=== PATIENT | female | born 1980 | race Caucasian/White ===

== ENCOUNTER 2019-08-25 09:01 | Outpatient (CLI) | payer SELFPAY ==
--- NOTE | 2019-08-25 09:14 | XR_ITS ---
WS: [id number] XR sacrum coccyx min 2V [id number] REASON FOR EXAM: INJURY OF COCCYX FINDINGS: The sacrum is found to be intact with normal alignment. Sacroiliac joints were normal. The coccyx is anterior angulated in the lower 2 segments but no fractures are seen. XR/XR sacrum coccyx min 2V [id number] IMPRESSION: Mild anterior angulation of the distal coccyx No fractures of the sacrum or coccyx.
--- NOTE | 2019-08-25 09:14 | XR_ITS ---
WS: [id number] XR lumbar spine 2-3V* [id number] REASON FOR EXAM: INJURY OF LOW BACK FINDINGS: The L1 vertebra shows mild compression changes. A mild scoliotic curve convex to the right. The disc spaces and vertebral bodies are normal. XR/XR lumbar spine 2-3V* [id number] IMPRESSION: Mild compression fracture L1. Scoliotic curve convex to the right
== END 2019-08-25 09:02 | disposition home or self-care (01) ==
LOC: RAD 09:07
PROVIDERS: Family Provider Nurse Practitioner Family; PCP Nurse Practitioner Family; Visit Provider Family Medicine
DX: S39.92XA Unspecified injury of lower back, initial encounter (principal); X58.XXXA Exposure to other specified factors, initial encounter; M48.56XA Collapsed vertebra, not elsewhere classified, lumbar region, initial encounter for fracture
CPT/HCPCS: 72100; 72220

== ENCOUNTER → 2023-04-22 09:32 | Outpatient (BNVA) | payer OTHER, SELFPAY | PROVIDERS: Family Provider Nurse Practitioner Family; PCP Nurse Practitioner Family; Visit Provider Nurse Practitioner Family | DX: J02.9 Acute pharyngitis, unspecified (principal) | CPT/HCPCS: 87880 ==

== ENCOUNTER → 2024-01-08 17:56 | Outpatient (BNVA) | payer MEDICAID, SELFPAY | PROVIDERS: Family Provider Nurse Practitioner Family; PCP Nurse Practitioner Family | DX: J02.9 Acute pharyngitis, unspecified (principal) | CPT/HCPCS: 87071; 87880 ==

== ENCOUNTER 2024-11-06 10:17 | Inpatient (IN) | payer OTHER, MEDICAID, SELFPAY ==
[2024-11-06] VITALS (8 sets, daily range): BP systolic 141–168; BP diastolic 99–119; PULSE 92–135; RESP 16–22; TEMP 36.7–37.4; O2SAT 95–99; BMI 27.4
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
--- OUTSIDE RECORDS SUMMARY | 2024-11-06 10:28 | XMS_ITS | Clinical Summary ---
Author Organization [facility] Address [address] [place] [address] Care Team Providers Care Travel Attendants Name Role Phone Unavailable Primary Care Provider Unavailabl e Allergies No known active allergies Medications buprenorphine-na lOXone (SUBOXONE) 8-2 mg Tablet, Sublingual Place 0.5 Tablets under tongue 2 times daily. Active albuterol sulfate 90 mcg/actuation metered powder inhalerIndicatio ns:Chronic obstructive pulmonary disease, unspecified COPD type (CMS/HCC) Take 2 Puffs by inhalation every 4 hours as needed. 0 Active FeroSuL 325 mg (65 mg iron) tablet Take 325 mg by mouth daily. 2 Active docusate sodium (COLACE) 100 mg capsule Take 1 Capsule by mouth daily. 2 Active norethindrone Ac-Eth estradiol (Loestrin 04/10, ,) 1-20 mg-mcg tablet Take 1 Tablet by mouth daily. 28 Tablet 6 2 Active Active Problems Problem Noted Date Diagnosed Date Cigarette dependence 08/21/2019 Acute type B viral hepatitis 10/07/2018 Overview (09/25/2020): Last Assessment & Plan: -has acute Hepatitis A and B in setting of chronic untreated Hep C -Hep A IgM+ - Hep B core IgM+, HBsAg negative, HBV DNA added on by lab medicine/pending. They will not run HB e ag and ab until the HBV DNA results. - HCV ab+, HCV RNA detected but below limits of quantitation -started on entecavir 10/08 for HBV, with improvement in labs and symptoms -RUQ US with mild steatosis and some GB wall thickening c/w acute hep A infection -Liver consult following, appreciate recs. Plan to discharge today. Will voucher 30d entecavir and provided pt with [email or web address] prescription drug assistance application. Filled out physician portion. She will follow-up with PCP near her. Tobacco use 02/20/2015 Dysmenorrhea 09/06/2014 Sensation of pressure in bladder area 09/06/2014 Acute cystitis with hematuria 09/06/2014 Vaginal discharge 09/06/2014 Antibiotic-induced yeast infection 09/06/2014 Encounters Date Type Department Care Team Description 10/04/2024 External Device Data [facility] Provider, Abstract 10/04/2024 External Device Data [facility] Provider, Abstract 10/04/2024 External Device Data [facility] Provider, Abstract 09/06/2024 External Device Data [facility] Provider, Abstract 08/15/2024 External Device Data [facility] Provider, Abstract 08/10/2024 External Device Data [facility] Provider, Abstract 08/09/2024 External Device Data [facility] Provider, Abstract from Last 3 Months Family History Medical History Relation Name Comments Diabetes Maternal Grandmother Hypertension Mother Relation Name Status Comments Father Maternal Grandfather Maternal Grandmother Alive Mother Alive Paternal Grandfather Paternal Grandmother Alive Social History Tobacco Use Types Packs/Day Years Used Date Smoking Tobacco: Former Cigarettes Smokeless Tobacco: Never Alcohol Use Standard Drinks/Week Comments Not Currently 0 (1 standard drink = 0.6 oz pur e alcohol) Comments No Sex and Gender Information Value Date Recorded Sex Assigned at Not on file 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 Gender Identity Not on file Sexual Orientation Not on file Last Filed Vital Signs Vital Sign Reading Time Taken Comments Blood Pressure 102/68 07/31/2021 2:31 PM CDT Pulse 75 07/31/2021 2:31 PM CDT Temperature 36.8 C (98.3 F) 07/31/2021 2:31 PM CDT Respiratory Rate 18 08/21/2019 11:29 AM CDT Oxygen Saturation 99% 07/31/2021 2:31 PM CDT Inhaled Oxygen Concentration - - Weight 66.7 kg (147 lb) 07/31/2021 2:31 PM CDT Height 162.6 cm (5' 4 ) 07/31/2021 2:31 PM CDT s tated Body Mass Index 25.23 07/31/2021 2:31 PM CDT Plan of Treatment Health Maintenance Due Date Last Done Comments HPV VACCINES (1 - 3-dose series) 11/06/1995 DTAP/TDAP/TD VACCINES (1 - Tdap) 11/06/1999 HEPATITIS B VACCINES (1 of 3 - 19+ 3-dose series) 11/06/1999 BREAST CANCER SCREENING 2020 PAP SMEAR 07/31/2024 07/31/2021, 09/27/2014 INFLUENZA VACCINE (#1) 2024 CERVICAL CANCER SCREENING 07/31/2026 HPV/Cotest (21-29) 07/31/2026 07/31/2021 HPV/Cotest (30-65) 07/31/2026 07/31/2021 Procedures Procedure Name Priority Date/Time Associated Diagnosis Comments CERV/VAG CYTO AGE BASED SCREEN PAP Routine 07/31/2021 3:12 PM CDT Well woman exam with routine gynecological exam from Last 3 Months or Most Recently Relevant to Health Maintenance Results * CERV/VAG CYTO AGE BASED SCREEN PAP (07/31/2021 3:12 PM CDT) COMMENT (PAP): [facility] Comment: This order for age-based cervical cancer and STI screening follows ACOG guidelines(PB 168, 140, OOM832). See individual assays for performing site location. CLINICAL INFORMATION [facility] Comment:Information not prov ided LAST MENSTRUAL PERIOD [facility] Comment:INFORMATION NOT PROV IDED PREV PAP: [facility] Comment:INFORMATION NOT PROV IDED PREV BX: [facility] Comment:INFORMATION NOT PROV IDED SOURCE [facility] Comment:Information not prov ided ADEQUACY: [facility] Comment: Satisfactory for evaluation. Endocervical/transformation zone component present. Age and/or menstrual status not provided PAP INTERP [facility] Comment:Negative for intraep ithelial lesion or malignancy. COMMENT (PAP TEST) [facility] Comment: This Pap test has been evaluated with computer assisted technology. SOFTWARE ENGINEERING SPECIALIST: [facility] Comment: MLO, CT(ASCP) CT screening location: [place] [address] [address] [place] [address] EXPLANATORY NOTE [facility] Comment: EXPLANATORY NOTE: The Pap is a screening test for cervical cancer. It is not a diagnostic test and is subject to false negative and false positive results. It is most reliable when a satisfactory sample, regularly obtained, is submitted with relevant clinical findings and history, and when the Pap result is evaluated along with historic and current clinical information. HPV E6/E7 Not Detected Not Detected [facility] Comment: Methodology: Specimen Processor-Mediated Amplification This assay detects E6/E7 viral messenger RNA (mRNA) from 14 high-risk HPV types (16,18,31,33,35,39,45,51,52,56,58,59,66,68). The analytical performance characteristics of this assay have been determined by [facility]. The modifications have not been cleared or approved by the FDA. This assay has been validated pursuant to the CLIA regulations and is used for clinical purposes. For additional information, please refer to http://education.Sample6/faq/OYI398w2 (This link if provided for information/ educational purposes only.) [facility] [address] [place] [address] Gama Villalba D.O., MPH SL Genital SWAB OF ENDOCERVIX / Unknown 07/31/2021 3:12 PM CDT 08/01/2021 9:06 AM CDT Priyanka Davis DO PATHOLOGY/CYTOLOGY ORDERABL ES Final Result [facility] [phone] from Last 3 Months or Most Recently Relevant to Health Maintenance Insurance [facility] [employer] MEDICAID
[2024-11-06 10:44] LABS: Hematocrit 38.3 % (36-47); Hemoglobin 12.20 g/dL (11.27-16.99); Mean Corpuscular HGB Conc 31.9 g/dL (30-55); Mean Corpuscular Hemoglobin 29.0 pg (27-33); Mean Corpuscular Volume 91.0 fl (85-98); Nucleated Red Blood Cells % 0 %; Platelet Count 255 10^3/cmm (157-399); Red Blood Count 4.21 10^6/uL (3.85-5.65); White Blood Count 7.58 10^3/uL (3.29-11.43)
[2024-11-06 11:04] LABS: HCG, Serum Qual Negative (Negative)
[2024-11-06 11:05] LABS: Alanine Aminotransferase 20 U/L (0-33); Albumin Level 4.3 g/dL (3.5-5.2); Alkaline Phosphatase 60 U/L (35-105); Anion Gap 16.5 (5-19); Aspartate Amino Transferase 29 U/L (0-32); Blood Urea Nitrogen 7 mg/dL (6-20); Calcium 9.2 mg/dL (8.5-10.5); Carbon Dioxide 22 mmol/L (22-29); Chloride 103 mmol/L (98-107); Creatinine Clr Calc Pharmacy 140.1933; Globulin 3.3 g/dL (1.3-4.6); Glucose 118 mg/dL (65-115); Osmolality Calculated 285 mOsm/kg (285-295); Potassium 3.5 mmol/L (3.5-5.1); Sodium 138 mmol/L (136-145); Total Protein 7.6 g/dL (6.6-8.7)
[2024-11-06 11:06] LABS: Acetaminophen < 5.0 ug/mL (10-30); Alcohol Level < 10 mg/dL (0-10); Salicylate < 0.3 mg/dL (3-10)
[2024-11-06 11:44] LABS: Glucose Urine UA Negative (Normal); Nitrate Urine Negative (Negative); Specific Gravity, Urine 1.027 (1.005-1.030)
--- NOTE | 2024-11-06 11:46 | PC.NURSE ---
96 hr rights reviewed with pt @[id number] with assistance of [facility] aoc director combat operations officer Shane Albright All education reviewed with pt at this time. Pt verbalized understanding to hold parameters. Pt copy was left with pt. Pt declined wanting a snack or beverage. No further needs.
[2024-11-06 11:54] LABS: Add Urine Microscopic? YES
[2024-11-06 11:58] LABS: PCP Screen Urine Negative (Negative)
--- NOTE | 2024-11-06 16:45 | PC.NURSE ---
Dr. Rucker gave verbal order to change Suboxone order to 1/2 tab of 4mg-1 film.
--- NOTE | 2024-11-06 20:00 | PC.NURSE ---
Addendum entered by Dora Estrella RN 11/07/24 03:08: This RN completed Face to Face during Manual Hold then transitioned to Violent Restraint hold. Total time of restraint was 43 minutes until full release. No injury to pt, reported by pt and staff. Original Note: Nursing Face to Face
[2024-11-06] MEDS: LORazepam 1 MG/0.5 ML injection 2 MG IM (20:32)
[2024-11-06] MEDS: haloperidol inj 5 mg/mL INJ 1 mL IM (22:23)
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
--- NOTE | 2024-11-07 02:41 | PC.NURSE ---
pt manual hold. pt was placed in a manual hold in floor until unit secured and staff arrived to support safe transfer to restraint bed.
--- NOTE | 2024-11-07 02:45 | PC.NURSE ---
manual hold transfer manual hold transferred to 2 point violent restraint at this time.
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
[2024-11-07] MEDS: buprenorphine-naloxone 4-1 mg Film 0.5 EACH SUBLINGUAL (09:11)
--- NOTE | 2024-11-07 13:49 | PC.NURSE ---
Dr. Rucker gave verbal order for Abilify 10mg now and then for QD.
[2024-11-07 14:00] VITALS: BP 133/75; PULSE 92; RESP 18; TEMP 36.7; O2SAT 98
[2024-11-07 19:18] VITALS: BP 101/71; PULSE 112; RESP 18; TEMP 36.9; O2SAT 98
[2024-11-08 06:00] VITALS: BP 143/79; PULSE 136; RESP 17; O2SAT 99
[2024-11-08] MEDS: buprenorphine-naloxone 4-1 mg Film 0.5 EACH SUBLINGUAL (09:52)
--- NOTE | 2024-11-08 13:30 | W.PM.NPUPNS ---
Subjective NPU Subjective: Patient today reporting that she is doing better and was inquiring about being able to be discharged. We discussed her hold and she did not know when her hold was up. When asked to look at the paper and advised this mortgage loan underwriter when her hold was up she was very challenged by just reading a piece of paper and giving a date and time. We discussed that this was a clear indication of her continued thought disorder and that we had significant concerns about her leaving without some resolution of that. We discussed the fact that her work which is her main reason for saying she needs to leave has been clear that they want her to get better and better she could return back there to continue working. So we discussed that it is in her best interest to focus on recovery more than the result of being discharged. We discussed the fact that if she does not have some significant improvement the likelihood is we would file for an extension of her hold. She denied any side effects of the medication other than it making her little tired and so we changed that to bedtime for tomorrow. Mental Status Exam MSE Comments: This is a well-nourished well-developed white female in hospital scrubs with limited grooming and eye contact. No abnormal movements except for psychomotor retardation. Somewhat cooperative with exam and mild distress. Speech was decreased rate and volume with frequent pauses consistent with thought blocking. Mood not described, affect odd, confused with occasional inappropriate laughter. Thought process linear at times but other times disorganized. Thought content: Patient denied suicidal or homicidal ideation, there were no delusions reported but clear paranoia and possible persecutory delusions noted, she denied auditory or visual hallucinations but then later acknowledges it was part of what got her here. Patient has experienced depression with feelings of helplessness and worthlessness, and has had times where they felt suicidal and engaged in self-injurious behavior, mostly when younger. Currently experiencing constant worrying and increased anxiety, particularly when in the hospital. Struggling with thought processes and confusion, attributed to drug use. Mood reported as current [place] hurt yourself or kill yourself. Drug use and hospitalization are current stressors. Attention and concentration was impaired and memory was unreliable but no more formally tested. She is alert and oriented times person and place. Insight, judgment and impulse control are impaired. Vitals/I&O/Wt Last Vital Signs Temp 98.4 F 11/07/24 19:18 Pulse 136 H 11/08/24 06:00 Resp 17 11/08/24 06:00 BP 143/79 11/08/24 06:00 Pulse Ox 99 11/08/24 06:00 O2 Del Method Room Air 11/07/24 19:18 Data NPU 11/06/24 10:36 11/06/24 10:36 Micro: Microbiology 11/06/24 10:30 Urine Culture - Preliminary Urine,Clean Catch Microbiology 11/06/24 10:30 Urine,Clean Catch Urine Culture - Preliminary A&P Assessment and plan 1. Psychotic disorder: 2. Methamphetamine use disorder, severe, dependence: 3. Opioid use disorder, severe, on maintenance therapy: Plan: This is a 44-year-old white female with a reported long history of mental health and addiction issues. With the services here at [facility] from the mid to late 1999 through 2019 who presents with psychosis most likely secondary to amphetamine use, guarded and a limited historian due to thought disorder. Thought disorder most likely attributed to recent methamphetamine use. Anxiety present and exacerbated by current hospitalization. Depression noted. History of self-injurious behavior, primarily in younger years with some relapses. Paranoia currently present, acknowledged as occurring since recent substance use. Plan Recommended initiation of antipsychotic therapy with either Abilify or Invega to address current thought disorder and abnormal thinking patterns, with the goal of reducing the duration and severity of symptoms. Advised to give the medication a trial and monitor for improvement 1. Initiate Abilify 10 mg p.o. daily. 2. Continue one-to-one but consider returning to every 15 minute checks for safety. 3. Encourage individual, group and milieu therapies. 4. Encourage sober living treatment after discharge at the highest level of care to which she is willing to commit. 5. Obtain collateral information. 6. Evaluate against the backdrop of a 96-hour hold. PDMP PDMP Reviewed: Not Reviewed Involuntary Hold Information Hold Status: Legal Status: 96 Hour Hold Date/Time Hold Expires: 96^11/10/24@1105 Attestations U Medical Necessity Statement*: Inpatient hospitalization is medically necessary and be clinically appropriate intervention at this time. Will monitor/initiate medications and make changes as indicated. Likely length of stay 4-6 days. Coding Level of Care Code Acute Code for [facility] Diagnoses Psychotic disorder F29 Methamphetamine use disorder, severe, dependence F15.20 Opioid use disorder, severe, on maintenance therapy F11.20
[2024-11-08 14:00] VITALS: BP 121/84; PULSE 69; RESP 17; TEMP 36.7; O2SAT 100
--- NOTE | 2024-11-08 18:29 | PC.NURSE ---
Dr. Rucker gave verbal order to change Abilify 10mg PO to HS, skipping tonights dose d/t it was given this am.
--- NOTE | 2024-11-08 21:59 | PC.NURSE ---
vs not collected per patient wanting to sleep resp 16 charge notified
[2024-11-09 06:00] VITALS: BP 131/71; PULSE 103; RESP 16; TEMP 36.4; O2SAT 97
--- NOTE | 2024-11-09 08:25 | NUR.SHIFT ---
Pt states that she slept good last night. No reports of anxiety or depression. She denies SI/HI or hallucinations. No reports of pain. She is calm and cooperative on assessment. She likes to spend time going into the foyer of [address].
[2024-11-09] MEDS: buprenorphine-naloxone 4-1 mg Film 0.5 EACH SUBLINGUAL (08:48)
[2024-11-09 13:56] VITALS: BP 123/82; PULSE 80; RESP 17; TEMP 37.1; O2SAT 99
--- NOTE | 2024-11-09 15:34 | W.PM.NPUPNS ---
Subjective NPU Subjective: Patient presented today reporting she is doing okay. She was visibly frustrated at the idea that she was not going to discharge but continued to have difficulty expressing her position per staff reports and direct communication. We discussed that her continued thought disorder is concerning and that we want a make sure that there is enough improvement to justify discharge. She endorsed an openness to try what ever the treatment team thinks she is just worried about getting back to work but we discussed wanting to make sure that when she left she would be able to function at work. She denied any side effects of the medication. Mental Status Exam MSE Comments: This is a well-nourished well-developed white female in hospital scrubs with limited grooming and eye contact. No abnormal movements except for psychomotor retardation. Somewhat cooperative with exam and mild distress. Speech was decreased rate and volume with less frequent pauses consistent with thought blocking. Mood described as feeling better, affect odd, but less confused. Thought process linear at times and appearing more organized at times. Thought content: Patient denied suicidal or homicidal ideation, there were no delusions reported but clear paranoia and possible persecutory delusions noted, she denied auditory or visual hallucinations but then later acknowledges it was part of what got her here. Patient has experienced depression with feelings of helplessness and worthlessness, and has had times where they felt suicidal and engaged in self-injurious behavior, mostly when younger. Currently experiencing constant worrying and increased anxiety, particularly when in the hospital. Struggling with thought processes and confusion, attributed to drug use. Mood reported as current [place] hurt yourself or kill yourself. Drug use and hospitalization are current stressors. Attention and concentration was impaired and memory was unreliable but no more formally tested. She is alert and oriented times person and place. Insight, judgment and impulse control are impaired. Vitals/I&O/Wt Last Vital Signs Temp 98.7 F 11/09/24 13:56 Pulse 80 11/09/24 13:56 Resp 17 11/09/24 13:56 BP 123/82 11/09/24 13:56 Pulse Ox 99 11/09/24 13:56 O2 Del Method Room Air 11/09/24 13:56 Data NPU 11/06/24 10:36 11/06/24 10:36 Micro: Microbiology 11/06/24 10:30 Urine Culture - Final Urine,Clean Catch Microbiology 11/06/24 10:30 Urine,Clean Catch Urine Culture - Final A&P Assessment and plan 1. Psychotic disorder: 2. Methamphetamine use disorder, severe, dependence: 3. Opioid use disorder, severe, on maintenance therapy: Plan: This is a 44-year-old white female with a reported long history of mental health and addiction issues. With the services here at [facility] from the mid to late 1999 through 2019 who presents with psychosis most likely secondary to amphetamine use, guarded and a limited historian due to thought disorder. Thought disorder most likely attributed to recent methamphetamine use. Anxiety present and exacerbated by current hospitalization. Depression noted. History of self-injurious behavior, primarily in younger years with some relapses. Paranoia currently present, acknowledged as occurring since recent substance use. Plan Recommended initiation of antipsychotic therapy with either Abilify or Invega to address current thought disorder and abnormal thinking patterns, with the goal of reducing the duration and severity of symptoms. Advised to give the medication a trial and monitor for improvement 1. Initiate Abilify 10 mg p.o. daily. Increase to 15 mg. 2. Patient was returned to every 15 minute checks for safety. 3. Encourage individual, group and milieu therapies. 4. Encourage sober living treatment after discharge at the highest level of care to which she is willing to commit. 5. Obtain collateral information. 6. Evaluate against the backdrop of a 96-hour hold. 21-day hold paperwork was filed. PDMP PDMP Reviewed: Not Reviewed Involuntary Hold Information Hold Status: Legal Status: 96 Hour Hold Date/Time Hold Expires: 96^11/10/24@1105 Attestations NPU Medical Necessity Statement*: Inpatient hospitalization is medically necessary and be clinically appropriate intervention at this time. Will monitor/initiate medications and make changes as indicated. Likely length of stay 3-5 days. Coding Level of Care Code Acute Code for [facility] Diagnoses Psychotic disorder F29 Methamphetamine use disorder, severe, dependence F15.20 Opioid use disorder, severe, on maintenance therapy F11.20
[2024-11-09 19:22] VITALS: BP 118/80; PULSE 97; RESP 18; TEMP 37; O2SAT 96
[2024-11-10 06:00] VITALS: BP 117/75; PULSE 94; RESP 18; TEMP 36.7; O2SAT 98
[2024-11-10] MEDS: buprenorphine-naloxone 4-1 mg Film 0.5 EACH SUBLINGUAL (08:22)
--- NOTE | 2024-11-10 09:00 | NUR.SHIFT ---
Pt states that she slept off and on She endorses mild anxiety and no depression. No reports of SI/HI or hallucinations. She states that she has 3/10 leg cramps. She is unsure if it is from walking so much since being here or from her new med. She was calm and cooperative on assessment.
--- NOTE | 2024-11-10 13:46 | P.NPUPN_ITS ---
Subjective NPU 2 Subjective: Patient presented today reporting that she is feeling a little frustrated about being here but also realizes the need for her to focus on having continued success moving forward. She reports that she agrees with this technical document writer that her behavior is really scared her family and she reports that back when she was younger and this happened before that it was really bad and so we were able to have a discussion about her figuring out how she is going to avoid a third act to this plate. She reports that she will think about that before we talk again tomorrow and we discussed the fact that her concerns about the 21-day hold are understood but that we would discharge her soon as it was clear that she is really better and we have a plan for moving forward and appointments etc. she denied any side effects of the medication. Mental Status Exam 2 MSE Comments: This is a well-nourished well-developed white female in hospital scrubs with limited grooming and eye contact. No abnormal movements except for psychomotor retardation. Somewhat cooperative with exam and mild distress. Speech was decreased rate and volume with less frequent pauses consistent with thought blocking. Mood described as feeling better, affect odd, but less confused. Thought process linear at times and appearing more organized at times. Thought content: Patient denied suicidal or homicidal ideation, there were no delusions reported but clear paranoia and possible persecutory delusions noted, she denied auditory or visual hallucinations but then later acknowledges it was part of what got her here. Patient has experienced depression with feelings of helplessness and worthlessness, and has had times where they felt suicidal and engaged in self-injurious behavior, mostly when younger. Currently experiencing constant worrying and increased anxiety, particularly when in the hospital. Struggling with thought processes and confusion, attributed to drug use. Mood reported as current [place] hurt yourself or kill yourself. Drug use and hospitalization are current stressors. Attention and concentration was impaired and memory was unreliable but no more formally tested. She is alert and oriented times person and place. Insight, judgment and impulse control are impaired. Vitals/I&O/Wt Last Vital Signs Temp 98.0 F 11/10/24 06:00 Pulse 94 11/10/24 06:00 Resp 18 11/10/24 06:00 BP 117/75 11/10/24 06:00 Pulse Ox 98 11/10/24 06:00 O2 Del Method Room Air 11/10/24 06:00 Data NPU 11/06/24 10:36 11/06/24 10:36 A&P Assessment and plan 1. Psychotic disorder: 2. Methamphetamine use disorder, severe, dependence: 3. Opioid use disorder, severe, on maintenance therapy: Plan: This is a 44-year-old white female with a reported long history of mental health and addiction issues. With the services here at [facility] from the mid to late 1999 through 2019 who presents with psychosis most likely secondary to amphetamine use, guarded and a limited historian due to thought disorder. Thought disorder most likely attributed to recent methamphetamine use. Anxiety present and exacerbated by current hospitalization. Depression noted. History of self-injurious behavior, primarily in younger years with some relapses. Paranoia currently present, acknowledged as occurring since recent substance use. Plan Recommended initiation of antipsychotic therapy with either Abilify or Invega to address current thought disorder and abnormal thinking patterns, with the goal of reducing the duration and severity of symptoms. Advised to give the medication a trial and monitor for improvement 1. Initiate Abilify 10 mg p.o. daily. Increased to 15 mg. 2. Patient was returned to every 15 minute checks for safety. 3. Encourage individual, group and milieu therapies. 4. Encourage sober living treatment after discharge at the highest level of care to which she is willing to commit. 5. Obtain collateral information. 6. Evaluate against the backdrop of a 96-hour hold. 21-day hold paperwork was filed. PDMP PDMP Reviewed: Not Reviewed Involuntary Hold Information 2 Hold Status: Legal Status: 96 Hour Hold Date/Time Hold Expires: 9 6^11/10/24@1105 Attestations [facility] 2 Medical Necessity Statement*: Inpatient hospitalization is medically necessary and be clinically appropriate intervention at this time. Will monitor/initiate medications and make changes as indicated. Likely length of stay 3-5 days. Coding Level of Care Code Acute Code for [facility] Diagnoses Psychotic disorder F29 Methamphetamine use disorder, severe, dependence F15.20 Opioid use disorder, severe, on maintenance therapy F11.20
[2024-11-10 14:00] VITALS: BP 115/72; PULSE 104; RESP 18; TEMP 36.9; O2SAT 97
[2024-11-10 19:26] VITALS: BP 105/75; PULSE 98; RESP 17; TEMP 36.8; O2SAT 98
[2024-11-11 06:00] VITALS: BP 116/74; PULSE 74; RESP 18; TEMP 36.5; O2SAT 97
[2024-11-11] MEDS: buprenorphine-naloxone 4-1 mg Film 0.5 EACH SUBLINGUAL (08:28)
--- NOTE | 2024-11-11 10:24 | NUR.SHIFT ---
Pt states that she slept pretty good last night. She denies anxiety and depression. No reports of SI/HI or hallucinations. No pain is reported. She was calm and cooperative on assessment.
[2024-11-11 14:00] VITALS: BP 125/83; PULSE 90; RESP 18; TEMP 36.6; O2SAT 100
--- NOTE | 2024-11-11 17:21 | P.NPUPN_ITS ---
Subjective NPU 2 Subjective: Patient presented today reporting that she is feeling better. She has less confusion or thought blocking per staff reports and direct observation. She reports starting to feel ashamed now that she is more conscious about with going on and about the choices that she made that led to her being here. We discussed the importance of her having a plan for how she is going to remain sober. We discussed the fact that it will not just happen because she is ashamed. She denied any side effects of the medication. Mental Status Exam 2 MSE Comments: This is a well-nourished well-developed white female in hospital scrubs with limited grooming and eye contact. No abnormal movements except for psychomotor retardation. Somewhat cooperative with exam and mild distress. Speech was decreased rate and volume with less frequent pauses. Mood described as feeling better, affect odd, but less confused. Thought process linear at times and appearing more organized at times. Thought content: Patient denied suicidal or homicidal ideation, there were no delusions reported but clear paranoia and possible persecutory delusions noted, she denied auditory or visual hallucinations but then later acknowledges it was part of what got her here. Attention and concentration was impaired and memory was unreliable but no more formally tested. She is alert and oriented times person and place. Insight, judgment and impulse control are impaired. Vitals/I&O/Wt Last Vital Signs Temp 97.9 F 11/11/24 14:00 Pulse 90 11/11/24 14:00 Resp 18 11/11/24 14:00 BP 125/83 11/11/24 14:00 Pulse Ox 100 11/11/24 14:00 O2 Del Method Room Air 11/11/24 06:00 Data NPU 11/06/24 10:36 11/06/24 10:36 A&P Assessment and plan 1. Psychotic disorder: 2. Methamphetamine use disorder, severe, dependence: 3. Opioid use disorder, severe, on maintenance therapy: Plan: This is a 44-year-old white female with a reported long history of mental health and addiction issues. With the services here at [facility] from the mid to late 1999 through 2019 who presents with psychosis most likely secondary to amphetamine use, guarded and a limited historian due to thought disorder. Thought disorder most likely attributed to recent methamphetamine use. Anxiety present and exacerbated by current hospitalization. Depression noted. History of self-injurious behavior, primarily in younger years with some relapses. Paranoia currently present, acknowledged as occurring since recent substance use. Plan Recommended initiation of antipsychotic therapy with either Abilify or Invega to address current thought disorder and abnormal thinking patterns, with the goal of reducing the duration and severity of symptoms. Advised to give the medication a trial and monitor for improvement 1. Initiate Abilify 10 mg p.o. daily. Increased to 15 mg. 2. Patient was returned to every 15 minute checks for safety. 3. Encourage individual, group and milieu therapies. 4. Encourage sober living treatment after discharge at the highest level of care to which she is willing to commit. 5. Obtain collateral information. 6. Evaluate against the backdrop of a 96-hour hold. 21-day hold paperwork was filed. PDMP PDMP Reviewed: Not Reviewed Involuntary Hold Information 2 Hold Status: Legal Status: 96 Hour Hold Date/Time Hold Expires: 9 6^11/10/24@1105 Attestations NPU 2 Medical Necessity Statement*: Inpatient hospitalization is medically necessary and be clinically appropriate intervention at this time. Will monitor/initiate medications and make changes as indicated. Likely length of stay 3-5 days. Coding Level of Care Code Acute Code for [facility] Diagnoses Psychotic disorder F29 Methamphetamine use disorder, severe, dependence F15.20 Opioid use disorder, severe, on maintenance therapy F11.20
[2024-11-11 19:37] VITALS: BP 123/76; PULSE 84; RESP 18; TEMP 36.5; O2SAT 100
[2024-11-12 06:00] VITALS: BP 114/70; PULSE 98; RESP 18; TEMP 36.8; O2SAT 100
[2024-11-12] MEDS: buprenorphine-naloxone 4-1 mg Film 0.5 EACH SUBLINGUAL (07:57)
[2024-11-12 14:00] VITALS: BP 116/88; PULSE 83; RESP 18; TEMP 36.9; O2SAT 99
--- NOTE | 2024-11-12 17:24 | P.NPUPN_ITS ---
Subjective NPU 2 Subjective: Patient presented today reporting that things are going fine. She is starting to have clarity in her thought process and communication per staff reports and direct observation. We discussed the great improvement that we are seeing and how critical her sobriety is to that happening. We discussed her continuing the medication which she denies any side effects from the medication and we discussed the fact that Dr. Golden will be here tomorrow to work with her on when discharge would be likely. Mental Status Exam 2 MSE Comments: This is a well-nourished well-developed white female in hospital scrubs with limited grooming and eye contact. No abnormal movements except for psychomotor retardation. Somewhat cooperative with exam and mild distress. Speech was more normal rate and volume. Mood described as feeling better, affect congruent. Thought process linear at times and appearing more organized at times. Thought content: Patient denied suicidal or homicidal ideation, there were no delusions reported or noted, she denied auditory or visual hallucinations but then later acknowledges it was part of what got her here. Attention and concentration was impaired and memory more reliable but no more formally tested. She is alert and oriented times person and place. Insight, judgment and impulse control are improving. Vitals/I&O/Wt Last Vital Signs Temp 98.5 F 11/12/24 14:00 Pulse 83 11/12/24 14:00 Resp 18 11/12/24 14:00 BP 116/88 11/12/24 14:00 Pulse Ox 99 11/12/24 14:00 O2 Del Method Room Air 11/12/24 06:00 Weight last 48 hrs Weight 69.944 kg Data NPU 11/06/24 10:36 11/06/24 10:36 A&P Assessment and plan 1. Psychotic disorder: 2. Methamphetamine use disorder, severe, dependence: 3. Opioid use disorder, severe, on maintenance therapy: Plan: This is a 44-year-old white female with a reported long history of mental health and addiction issues. With the services here at [facility] from the mid to late 1999 through 2018 who presents with psychosis most likely secondary to amphetamine use, guarded and a limited historian due to thought disorder. Thought disorder most likely attributed to recent methamphetamine use. Anxiety present and exacerbated by current hospitalization. Depression noted. History of self-injurious behavior, primarily in younger years with some relapses. Paranoia currently present, acknowledged as occurring since recent substance use. Plan Recommended initiation of antipsychotic therapy with either Abilify or Invega to address current thought disorder and abnormal thinking patterns, with the goal of reducing the duration and severity of symptoms. Advised to give the medication a trial and monitor for improvement 1. Initiate Abilify 10 mg p.o. daily. Increased to 15 mg. 2. Patient was returned to every 15 minute checks for safety. 3. Encourage individual, group and milieu therapies. 4. Encourage sober living treatment after discharge at the highest level of care to which she is willing to commit. 5. Obtain collateral information. 6. Evaluate against the backdrop of a 96-hour hold. 21-day hold paperwork was filed. PDMP PDMP Reviewed: Not Reviewed Involuntary Hold Information 2 Hold Status: Legal Status: 96 Hour Hold Date/Time Hold Expires: 9 6^11/10/24@1105 Attestations NPU 2 Medical Necessity Statement*: Inpatient hospitalization is medically necessary and be clinically appropriate intervention at this time. Will monitor/initiate medications and make changes as indicated. Likely length of stay 1-3 days. Coding Level of Care Code Acute Code for g Fwd Diagnoses Psychotic disorder F29 Methamphetamine use disorder, severe, dependence F15.20 Opioid use disorder, severe, on maintenance therapy F11.20
[2024-11-12 22:00] VITALS: BP 107/63; PULSE 116; RESP 17; TEMP 36.6; O2SAT 96
--- NOTE | 2024-11-13 04:03 | PC.NURSE ---
pt apology pt sought this nurse out to apologize for her actions during this nurse last shift. pt was tearful and remorseful.
[2024-11-13 06:00] VITALS: BP 102/61; PULSE 85; RESP 17; TEMP 36.7; O2SAT 98
[2024-11-13] MEDS: buprenorphine-naloxone 4-1 mg Film 0.5 EACH SUBLINGUAL (08:40)
[2024-11-13 14:00] VITALS: BP 113/80; PULSE 79; RESP 18; TEMP 36.8; O2SAT 95
--- NOTE | 2024-11-13 17:39 | P.NPUPN_ITS ---
Subjective NPU 2 Subjective: 44-year-old female admitted with psychos is secondary to methamphetamine use. The patient had reported an extended history of opiate use disorder as well and stated that she had been tapering off of her suboxone over three months. And stated that it was in the context of using alcohol this time. She had reported no prior history of psychosis associated with stimulant abuse. She had reported motivation to remain remain sober and stated that she would like to return back to her previous successful dose of Suboxone at 8 mg daily. The patient had denied any psychosis today. She reported that she was beginning to feel better. Mental Status Exam 2 MSE Comments: This is a well-nourished well-developed white female in hospital scrubs with improved grooming and fair eye contact. No abnormal involuntary motor movements except for mild psychomotor retardation. She was cooperative with exam and in no acute distress. Speech was normal in regards to rate, rhythm, and prosody. Mood was described as better. Affect was slightly restricted. Thought process was linear logical and goal directed. Thought content: Patient denied suicidal or homicidal ideation, there were no delusions reported or noted, she denied auditory or visual hallucinations but then later acknowledges it was part of what got her here. Attention and concentration was impaired and memory more reliable but no more formally tested. She is alert and oriented times person and place and time. Insight, judgment and impulse control are improving. Vitals/I&O/Wt Last Vital Signs Temp 98.2 F 11/13/24 14:00 Pulse 79 11/13/24 14:00 Resp 18 11/13/24 14:00 BP 113/80 11/13/24 14:00 Pulse Ox 95 11/13/24 14:00 O2 Del Method Room Air 11/13/24 06:00 Weight last 48 hrs Weight 69.944 kg Data NPU 11/06/24 10:36 11/06/24 10:36 A&P Assessment and plan 1. Psychotic disorder: 2. Methamphetamine use disorder, severe, dependence: 3. Opioid use disorder, severe, on maintenance therapy: Plan: This is a 44-year-old white female with a reported long history of mental health and addiction issues. With the services here at [facility] from the mid to late 1999 through 2018 who presents with psychosis most likely secondary to amphetamine use, guarded and a limited historian due to thought disorder. Thought disorder most likely attributed to recent methamphetamine use. Anxiety present and exacerbated by current hospitalization. Depression noted. History of self-injurious behavior, primarily in younger years with some relapses. Paranoia currently present, acknowledged as occurring since recent substance use. Plan Continue initiation of antipsychotic therapy with Abillify to address current thought disorder and abnormal thinking patterns, with the goal of reducing the duration and severity of symptoms. Advised to give the medication a trial and monitor for improvement 1. Continue Abilify 15mg daily. Restart Suboxone 8/2mg daily. 2. Patient was returned to every 15 minute checks for safety. 3. Encourage individual, group and milieu therapies. 4. Encourage sober living treatment after discharge at the highest level of care to which she is willing to commit. 5. Obtain collateral information. 6. Court hearing scheduled tommorow. PDMP PDMP Reviewed: Not Reviewed Involuntary Hold Information 2 Hold Status: Legal Status: 96 Hour Hold Date/Time Hold Expires: 9 6^11/10/24@1105 Attestations NPU 2 Medical Necessity Statement*: Inpatient hospitalization is medically necessary and be clinically appropriate intervention at this time. Will monitor/initiate medications and make changes as indicated. Likely length of stay 1-3 days. Coding Level of Care Code Acute Code for [facility] Diagnoses Psychotic disorder F29 Methamphetamine use disorder, severe, dependence F15.20 Opioid use disorder, severe, on maintenance therapy F11.20
[2024-11-13 21:55] VITALS: BP 101/71; PULSE 91; RESP 16; TEMP 36.7; O2SAT 99
[2024-11-14 06:00] VITALS: BP 110/83; PULSE 93; RESP 16; TEMP 36.6; O2SAT 98
[2024-11-14] MEDS: buprenorphine-naloxone 4-1 mg Film 2 EACH SUBLINGUAL (09:19)
[2024-11-14 13:29] VITALS: BP 115/66; PULSE 86; RESP 16; TEMP 36.7; O2SAT 98
[2024-11-14 16:25] VITALS: BP 115/66; PULSE 86; RESP 16; TEMP 36.7; O2SAT 98
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
== END 2024-11-14 16:45 | disposition home or self-care (01) | DRG 885 ==
LOC: ER 11:32 → NP 11:36
PROVIDERS: Admitting Provider Psychiatry & Neurology Psychiatry; Emergency Provider Physician Assistant; Visit Provider Psychiatry & Neurology Psychiatry
DX: F23 Brief psychotic disorder (principal); F15.20 Other stimulant dependence, uncomplicated; F41.9 Anxiety disorder, unspecified; F32.A Depression, unspecified; Z91.51 Personal history of suicidal behavior; Z72.0 Tobacco use; Z81.8 Family history of other mental and behavioral disorders; Z62.810 Personal history of physical and sexual abuse in childhood; Z62.811 Personal history of psychological abuse in childhood
CPT/HCPCS: 36415; 80053; 80306; 80307; 81001; 84703; 85025; 87086; 96372; 97150; 97165; 99285; J0573; J1630; J2060; J9999